=== PATIENT | female | born 1950 | race Caucasian/White ===

== ENCOUNTER 2016-11-20 12:37 | Emergency (ER) | payer MEDICARE, OTHER | END 2016-11-20 16:15 | disposition home or self-care (01) | LOC: ED 12:37 | DX: B34.9 Viral infection, unspecified (principal); K12.0 Recurrent oral aphthae; R05 Cough; I10 Essential (primary) hypertension; J44.9 Chronic obstructive pulmonary disease, unspecified; K44.9 Diaphragmatic hernia without obstruction or gangrene; K42.9 Umbilical hernia without obstruction or gangrene; M19.90 Unspecified osteoarthritis, unspecified site; E11.40 Type 2 diabetes mellitus with diabetic neuropathy, unspecified; Z87.891 Personal history of nicotine dependence ==

== ENCOUNTER 2017-01-11 09:22 | Emergency (ER) | payer MEDICARE, OTHER ==
[2017-01-11 09:47] LABS: ABSOLUTE NEUTROPHIL COUNT 4.8 K/mm3 (1.8-7.7); BASO # 0.1 K/mm3 (0.0-0.2); BASO % 0.6 % (0.2-1.0); EOS # 0.4 (0.0-0.5); EOS % 4.6 % (0.9-2.9); HEMATOCRIT 40.2 % (37.0-47.0); HEMOGLOBIN 13.3 gm/l (12.0-16.0); IMM NEUT% 0.4 % (0-1); LYMPH # 1.8 (1.0-4.8); LYMPH % 23.3 % (15-45); MEAN CELL VOLUME 95.7 fl (81.0-99.0); MEAN CORPUSCULAR HEMOGLOBIN 31.7 pg (27.0-31.0); MEAN CORPUSCULAR HGB CONC 33.1 g/dl (33.0-37.0); MEAN PLATELET VOLUME 8.3 fl (7.4-10.4); MONO # 0.7 (0.0-0.8); MONO % 9.1 % (4-12); PLATELET COUNT 270 K/mm3 (130-400); RED CELL DISTRIBUTION WIDTH 13.5 % (11.5-14.5)
[2017-01-11 09:57] LABS: ALB/GLOB RATIO 1.4 (>1.0); ALBUMIN 4.3 gm/dL (3.5-5.7); CALCIUM 9.5 mg/dL (8.6-10.3)
[2017-01-11] MEDS ORDERED: NITROGLYCERIN OINT 1 G (DOSE) ONE ×2 (10:43→11:52)
--- NOTE | 2017-01-11 11:02 | RAD ---
CHEST-AP BEDSIDE HISTORY: Acute onset of chest pain with dyspnea. COMPARISONS: 10/30/2016. FINDINGS: A single AP upright view of the chest was performed demonstrating grossly intact soft tissue and bony structures. The heart size is stable. There is persistent left basilar atelectasis or scarring, similar to the appearance on prior examination. No effusion or pneumothorax is visualized. The hilar and mediastinal structures are intact. IMPRESSION: 1. Linear left basilar atelectasis or scarring, similar to the appearance on prior examination.
[2017-01-11 11:22] LABS: URINE BILIRUBIN NEGATIVE (NEGATIVE); URINE BLOOD NEGATIVE (NEGATIVE); URINE GLUCOSE (UA) NEGATIVE (NEGATIVE); URINE LEUKOCYTE ESTERASE NEGATIVE (NEGATIVE); URINE NITRITE NEGATIVE (NEGATIVE); URINE PROTEIN NEGATIVE (NEGATIVE); URINE UROBILINOGEN NORMAL (0-1 mg/dl)
[2017-01-11 11:23] LABS: URINE APPEARANCE CLEAR; URINE COLOR YELLOW
[2017-01-11] MEDS ORDERED: ALBUTEROL/IPRATROPIUM 2.5/0.5 MG 3 ML/EACH DOSE ONE (13:51)
== END 2017-01-11 14:38 | disposition home or self-care (01) ==
LOC: ED 09:22
DX: R07.9 Chest pain, unspecified (principal); J44.9 Chronic obstructive pulmonary disease, unspecified; I10 Essential (primary) hypertension; E11.9 Type 2 diabetes mellitus without complications; Z87.891 Personal history of nicotine dependence; Z99.81 Dependence on supplemental oxygen; Z79.4 Long term (current) use of insulin
CPT/HCPCS: 83690; 83880; 85025; 80053; 81003; 84484 ×2; 71010; 94640; 99285 ×2; A9270 ×2